=== PATIENT | male | born 1950 | race Caucasian/White ===

== ENCOUNTER 2022-10-10 12:22 | Emergency (ER) | payer OTHER ==
--- NOTE | 2022-10-10 13:14 | RAD REPORT ---
EXAM DESCRIPTION: CT - Head Brain Wo Cont - 10/10/2022 1:07 pm CLINICAL HISTORY: HEADACHE Headache, drowsiness COMPARISON: No comparisons TECHNIQUE: All CT scans are performed using dose optimization technique as appropriate and may inclu de automated exposure control or mA/KV adjustment according to patient size. FINDINGS: No intracranial hemorrhage, hydrocephalus or extra-axial fluid collection.No areas of brai n edema or evidence of midline shift. The paranasal sinuses and mastoids are clear. The calvarium is intact. IMPRESSION: No acute intracranial abnormality.
[2022-10-10] MEDS ORDERED: METHYLPREDNISOLONE 125 MG INJ ONE (14:29)
[2022-10-10] MEDS ORDERED: KETOROLAC 30 MG/ML INJ ONE (14:29)
[2022-10-10] MEDS ORDERED: METOCLOPRAMIDE 10 MG/2mL INJ ONE (14:29)
[2022-10-10 14:43] LABS: Absolute Lymphocytes (CBC) 1.2 K/uL (0.7-4.9); Hematocrit 41.6 % (39.6-49.0); Lymphocytes % 23.5 % (15.3-44.8); MCV 90.2 fL (80-100); MPV 8.5 fL (7.6-11.3); RBC Red Blood Cell Count 4.61 M/uL (4.33-5.43)
[2022-10-10 15:50] VITALS: TEMP 97.5; O2SAT 100
[2022-10-10 15:52] VITALS: BP 140/88
--- NOTE | 2022-10-14 13:17 | EKG ---
Test Date: 2022-10-10 Test Time: 14:29:43 Scrap Metal Collector: OCTAVIA MEASUREMENT RESULTS: Intervals: Rate: 64 DC: 132 QRSD: 74 QT: 364 QTc: 375 [place]: P: 47 DC: 132 QRS: -3 T: 1 INTERPRETIVE STATEMENTS: Normal sinus rhythm with sinus arrhythmia Minimal voltage criteria for LVH, may be normal variant Borderline ECG No previous ECG available for comparison Electronically Signed On 10-14-22 13:09:15 CDT by Gunner King
--- NOTE | 2022-10-25 15:33 | ER ---
Nurse's Notes [facility] Name: Jj Bush Age: 72 yrs Sex: Male : 1950 Arrival Date: 10/10/2022 Time: 12:26 Bed 17 Private MD: Daniel Weinstein Diagnosis: Headache Presentation: 10/10 12:40 Chief complaint: Headache, neck pain, and nausea x 6 days. Coronavirus screen: Client hb presents with at least one sign or symptom that may indicate coronavirus-19. Provider contacted for isolation considerations. Ebola Screen: No symptoms or risks identified at this time. Initial Sepsis Screen: Does the patient meet any 2 criteria? No. Patient's initial sepsis screen is negative. Does the patient have a suspected source of infection? No. Patient's initial sepsis screen is negative. Risk Assessment: Do you want to hurt yourself or someone else? Patient reports no desire to harm self or others. Onset of symptoms was October 05, 2022. 12:40 Method Of Arrival: Ambulatory hb 12:40 Acuity: JACOB 3 hb Historical: - Allergies: 12:41 No Known Allergies; hb - PMHx: 12:41 None; hb - PSHx: 12:41 None; hb - Immunization history:: Adult Immunizations up to date. - Social history:: Smoking status: . Screenin:49 [facility] ED Fall Risk Assessment (Adult) History of falling in the last 3 months, vg1 including since admission No falls in past 3 months (0 pts) Confusion or Disorientation No (0 pts) Intoxicated or Sedated No (0 pts) Impaired Gait No (0 pts) Mobility Assist Device Used No (0 pt) Altered Elimination No (0 pt) Score/Fall Risk Level 0 - 2 = Low Risk Oriented to surroundings, Maintained a safe environment, Educated pt \T\ family on fall prevention, incl call for assistance when getting out of bed, Assessed \T\ reinforced patient's understanding of fall precautions. Abuse screen: Denies threats or abuse. Denies injuries from another. Nutritional screening: No deficits noted. Tuberculosis screening: No symptoms or risk factors identified. Assessment: 14:49 General: Appears in no apparent distress. uncomfortable, Behavior is calm, cooperative. vg1 Pain: Complains of pain in right occipital area and right base of the skull Pain currently is 8 out of 10 on a pain scale. Pain began 10/05/2022 Also complains of nausea. Neuro: Level of Consciousness is awake, alert, obeys commands, Oriented to person, place, time, situation, Gas Truck Driver are equal bilaterally Moves all extremities. Speech is normal, Facial symmetry appears normal, Denies weakness blurred vision dizziness. Cardiovascular: Patient's skin is warm and dry. Respiratory: Airway is patent Respiratory effort is even, unlabored. GI: Abdomen is round non-distended, Reports nausea. : No signs and/or symptoms were reported regarding the genitourinary system. EENT: No signs and/or symptoms were reported regarding the EENT system. Derm: Skin is pink, warm \T\ dry. Musculoskeletal: Circulation, motion, and sensation intact. Vital Signs: 12:40 BP 160 / 98; Pulse 88; Resp 16; Temp 97.5; Pulse Ox 100% on R/A; Weight 89.36 kg; hb Height 5 ft. 8 in. ; Pain 8/10; 15:42 BP 140 / 88; Pulse 59; Resp 16; Pulse Ox 100% on R/A; vg1 12:40 Body Mass Index 29.95 (89.36 kg, 172.72 cm) hb 12:40 Pain Scale: Adult hb NIH Stroke Scale Scores: 12:35 NIHSS Score: 0 [facility] ED Course: 12:26 Patient arrived in ED. mr 12:27 Daniel Weinstein MD is Private Physician. mr 12:36 Velvet Miller, ELKIN is [facility]. jh7 12:41 Triage completed. hb 12:41 Arm band placed on. hb 13:09 CT Head Brain wo Cont In Process Unspecified. EDMS 13:54 Ebenezer Claros MD is Attending Physician. jh7 14:20 Kellee Daugherty, RN is Primary Nurse. vg1 14:35 Inserted saline lock: 20 gauge in right antecubital area, using aseptic technique. vg1 ,using aseptic technique. completed by CUONG. 14:49 Patient has correct armband on for positive identification. Placed in gown. Bed in low vg1 position. Call light in reach. Side rails up X 1. Client placed on continuous cardiac and pulse oximetry monitoring. NIBP monitoring applied. 15:08 Daniel Weinstein MD is Referral Physician. [facility] 15:43 No provider procedures requiring assistance completed. IV discontinued, intact, vg1 bleeding controlled, No redness/swelling at site. Pressure dressing applied. Administered Medications: 14:40 Drug: MethylPrednisoLONE IVP 125 mg Route: IVP; Site: right antecubital; vg1 15:44 Follow up: Response: No adverse reaction vg1 14:42 Drug: metoCLOPramide IVP 10 mg Route: IVP; Site: right antecubital; vg1 15:44 Follow up: Response: No adverse reaction vg1 14:44 Drug: Ketorolac IVP 30 mg Route: IVP; Site: right antecubital; vg1 15:44 Follow up: Response: No adverse reaction vg1 Medication: 14:49 VIS not applicable for this client. vg1 Outcome: 15:08 Discharge ordered by . jh7 15:42 Discharged to home ambulatory. vg1 15:42 Condition: good 15:42 Discharge instructions given to patient, Instructed on discharge instructions, follow up and referral plans. medication usage, Demonstrated understanding of instructions, follow-up care, medications, Prescriptions given X 1. 15:44 Patient left the ED. vg1 NIH Stroke Scale - NIH Stroke Score Date: 10/10/2022 Time: 12:35 Total Score = 0 10. Dysarthria (speech clarity - read or repeat words) - 0(Normal) 11. Extinction and Inattention (visual/tactile/auditory/spatial/personal) - 0(No abnormality) 1a. Level of Consciousness (LOC) - 0(Alert) 1b. Level of Consciousness (LOC) (Month \T\ Age) - 0(Both) 1c. LOC Commands (Open \T\ Closes Eyes/Antenna Installer) - 0(Both) 2. Best Gaze (Lateral Gaze Paresis) - 0(Normal) 3. Visual Field Loss - 0(No visual loss) 4. Facial Palsy - 0(Normal) 5a. Left Arm: Motor (10-second hold) - 0(No drift) 5b. Right Arm: Motor (10-second hold) - 0(No drift) 6a. Left Leg: Motor (5-second hold - always test supine) - 0(No drift) 6b. Right Leg: Motor (5-second hold - always test supine) - 0(No drift) 7. Limb Ataxia (finger/nose \T\ heel/tabor - test with eyes open) - 0(Absent) 8. Sensory Loss (pinprick arms/legs/face) - 0(Normal) 9. Best Language: Aphasia (description/naming/reading) - 0(No aphasia) Initials: 7 Signatures: Dispatcher [employer] Nadeen MominSaige, RN RN Kellee Burden, RN RN vg1 Velvet Miller, WASTE DISPOSAL ATTENDANT WASTE DISPOSAL ATTENDANT 7 Corrections: (The following items were deleted from the chart) 12:45 12:40 BP 160 / 98; Pulse 88bpm; Resp 16bpm; Pulse Ox 100% RA; Temp 97.5F; hb hb
--- NOTE | 2022-10-25 15:33 | EDPHYS ---
Physician Documentation [facility] Name: Jj Bush Age: 72 yrs Sex: Male : 1950 Arrival Date: 10/10/2022 Time: 12:26 Bed 17 Private MD: Daniel Weinstein ED Physician Ebenezer Claros HPI: 10/10 12:35 This 72 yrs old Male presents to ER via Ambulatory with complaints of Head pain,neck jh7 pain, Nausea. 12:35 Onset: The symptoms/episode began/occurred 6 day(s) ago. Associated signs and symptoms: jh7 Pertinent positives: headache, Pertinent negatives: abdominal pain, chest pain, fever, shortness of breath, vomiting. 72-year-old male presents with posterior headache radiating down neck with nausea starting 6 days ago. Denies any past medical history and does not take any medication. Patient of Dr. Rodriguez. Denies weakness, dysphagia, speech changes, visual changes, or any other symptoms. Reports that his headache worsens when he lifts his head up.. Historical: - Allergies: 12:41 No Known Allergies; hb - PMHx: 12:41 None; hb - PSHx: 12:41 None; hb - Immunization history:: Adult Immunizations up to date. - Social history:: Smoking status: . ROS: 12:35 Constitutional: Negative for fever, chills, and weight loss, Eyes: Negative for injury, jh7 pain, redness, and discharge, Neck: Negative for injury, pain, and swelling, Cardiovascular: Negative for chest pain, palpitations, and edema, Respiratory: Negative for shortness of breath, cough, wheezing, and pleuritic chest pain, Back: Negative for injury and pain, MS/Extremity: Negative for injury and deformity, Skin: Negative for injury, rash, and discoloration, Neuro: Negative for headache, weakness, numbness, tingling, and seizure. 12:35 Neck: 12:35 Abdomen/GI: Positive for nausea, Negative for vomiting, diarrhea, constipation. 12:35 Neuro: Positive for headache, Negative for altered mental status, dizziness, numbness, speech changes, syncope, tingling, visual changes, weakness. 12:35 All other systems are negative. Exam: 12:35 Constitutional: This is a well developed, well nourished patient who is awake, alert, jh7 and in no acute distress. Head/Face: Normocephalic, atraumatic. Eyes: Pupils equal round and reactive to light, extra-ocular motions intact. Lids and lashes normal. Conjunctiva and sclera are non-icteric and not injected. Cornea within normal limits. Periorbital areas with no swelling, redness, or edema. ENT: Nares patent. No nasal discharge, no septal abnormalities noted. Tympanic membranes are normal and external auditory canals are clear. Oropharynx with no redness, swelling, or masses, exudates, or evidence of obstruction, uvula midline. Mucous membranes moist. Neck: Trachea midline, no thyromegaly or masses palpated, and no cervical lymphadenopathy. Supple, full range of motion without nuchal rigidity, or vertebral point tenderness. No Meningismus. Cardiovascular: Regular rate and rhythm with a normal S1 and S2. No gallops, murmurs, or rubs. Normal PMI, no JVD. No pulse deficits. Respiratory: Lungs have equal breath sounds bilaterally, clear to auscultation and percussion. No rales, rhonchi or wheezes noted. No increased work of breathing, no retractions or nasal flaring. Abdomen/GI: Soft, non-tender, with normal bowel sounds. No distension or tympany. No guarding or rebound. No evidence of tenderness throughout. Skin: Warm, dry with normal turgor. Normal color with no rashes, no lesions, and no evidence of cellulitis. MS/ Extremity: Pulses equal, no cyanosis. Neurovascular intact. Full, normal range of motion. Neuro: Awake and alert, GCS 15, oriented to person, place, time, and situation. Cranial nerves II-XII grossly intact. Motor strength 5/5 in all extremities. Sensory grossly intact. Cerebellar exam normal. Normal gait. Vital Signs: 12:40 BP 160 / 98; Pulse 88; Resp 16; Temp 97.5; Pulse Ox 100% on R/A; Weight 89.36 kg; hb Height 5 ft. 8 in. ; Pain 8/10; 15:42 BP 140 / 88; Pulse 59; Resp 16; Pulse Ox 100% on R/A; vg1 12:40 Body Mass Index 29.95 (89.36 kg, 172.72 cm) hb 12:40 Pain Scale: Adult hb NIH Stroke Scale Scores: 12:35 NIHSS Score: 0 jh7 MDM: 12:36 Patient medically screened. [facility] 14:57 Differential diagnosis: meningitis, Acute CVA, hypertensive urgency, migraine headache, jh7 tension headache. Data reviewed: vital signs, nurses notes, lab test result(s), EKG, radiologic studies, CT scan. I considered the following discharge prescriptions or medication management in the emergency department Medications were administered in the Emergency Department. See MAR. Independent interpretation of the following test(s) in the Emergency Department EKG: See my EKG interpretation above. Counseling: I had a detailed discussion with the patient and/or guardian regarding: the historical points, exam findings, and any diagnostic results supporting the discharge/admit diagnosis, the need for outpatient follow up, a neurologist, to return to the emergency department if symptoms worsen or persist or if there are any questions or concerns that arise at home. Response to treatment: the patient's symptoms have markedly improved after treatment. Special discussion: Advised to follow-up with neuro if symptoms persist.. ED course: Patient hemodynamically stable throughout the ER visit. Informed him that his CT was negative for any abnormalities. His NIH was 0 and EKG showed normal sinus rhythm.. 10/10 12:46 Order name: Basic Metabolic Panel; Complete Time: 14:55 [facility] 10/10 12:46 Order name: CBC with Diff; Complete Time: 14:55 [facility] 10/10 12:46 Order name: CT Head Brain wo Cont; Complete Time: 13:15 [facility] 10/10 12:46 Order name: EKG; Complete Time: 12:47 [facility] 10/10 12:46 Order name: Cardiac monitoring; Complete Time: 14:30 [facility] 10/10 12:46 Order name: EKG - Nurse/Tech; Complete Time: 14:30 [facility] 10/10 12:46 Order name: IV Saline Lock; Complete Time: 14:30 [facility] 10/10 12:46 Order name: Labs collected and sent; Complete Time: 14:30 [facility] 10/10 12:46 Order name: O2 Per Protocol; Complete Time: 14:30 [facility] 10/10 12:46 Order name: O2 Sat Monitoring; Complete Time: 14:35 [facility] EC:29 Rate is 64 beats/min. Rhythm is regular. QRS [place] is Normal. IA interval is normal at [facility] 132 msec. QRS interval is normal at 74 msec. QT interval is normal at 364 msec. No Q waves. T waves are Normal. No ST changes noted. Clinical impression: Normal ECG. Administered Medications: 14:40 Drug: MethylPrednisoLONE IVP 125 mg Route: IVP; Site: right antecubital; vg1 15:44 Follow up: Response: No adverse reaction vg1 14:42 Drug: metoCLOPramide IVP 10 mg Route: IVP; Site: right antecubital; vg1 15:44 Follow up: Response: No adverse reaction vg1 14:44 Drug: Ketorolac IVP 30 mg Route: IVP; Site: right antecubital; vg1 15:44 Follow up: Response: No adverse reaction vg1 Disposition: 15:53 Co-signature as Attending Physician, Ebenezer Claros MD I reviewed the patient's care rn provided by the Advanced Practice Provider and agree with the diagnosis and treatment plan. Disposition Summary: 10/10/22 15:08 Discharge Ordered Location: Home [facility] Problem: new [facility] Symptoms: have improved [facility] Condition: Stable [facility] Diagnosis - Headache [facility] Followup: [facility] - With: Daniel Weinstein MD - When: 2 - 3 days - Reason: Recheck today's complaints Discharge Instructions: - Discharge Summary Sheet [facility] - General Headache Without Cause [facility] Forms: - Medication Reconciliation Form [facility] - Thank You Letter [facility] Prescriptions: - Medrol (Qasim) 4 mg Oral Tablets, Dose Pack - take 1 tablet by ORAL route as directed - follow package instructions; 1 [facility] packet; Refills: 0, Product Selection Permitted NIH Stroke Scale - NIH Stroke Score Date: 10/10/2022 Time: 12:35 Total Score = 0 10. Dysarthria (speech clarity - read or repeat words) - 0(Normal) 11. Extinction and Inattention (visual/tactile/auditory/spatial/personal) - 0(No abnormality) 1a. Level of Consciousness (LOC) - 0(Alert) 1b. Level of Consciousness (LOC) (Month \T\ Age) - 0(Both) 1c. LOC Commands (Open \T\ Closes Eyes/Shutdown Planner) - 0(Both) 2. Best Gaze (Lateral Gaze Paresis) - 0(Normal) 3. Visual Field Loss - 0(No visual loss) 4. Facial Palsy - 0(Normal) 5a. Left Arm: Motor (10-second hold) - 0(No drift) 5b. Right Arm: Motor (10-second hold) - 0(No drift) 6a. Left Leg: Motor (5-second hold - always test supine) - 0(No drift) 6b. Right Leg: Motor (5-second hold - always test supine) - 0(No drift) 7. Limb Ataxia (finger/nose \T\ heel/tabor - test with eyes open) - 0(Absent) 8. Sensory Loss (pinprick arms/legs/face) - 0(Normal) 9. Best Language: Aphasia (description/naming/reading) - 0(No aphasia) Initials: [facility] Signatures: Dispatcher [employer] EDMS Ebenezer Claros MD MD rn Baxter, Heather, RN RN hb Garcia, Victoria, RN RN vg1 Velvet Miller, SHIRT LINE OPERATOR SHIRT LINE OPERATOR [facility]
== END 2022-10-10 15:44 | disposition home or self-care (01) ==
LOC: ER 12:22
DX: R51.9 Headache, unspecified (principal); R11.0 Nausea
CPT/HCPCS: 93005; 85025; 80048; 36415; 70450; 96375; 96374; 99284; J2765; J2930

== ENCOUNTER 2024-05-07 17:44 | Emergency (ER) | payer OTHER ==
[2024-05-07] MEDS ORDERED: NA CHLORIDE 0.9% 1,000 ML ONE ×3 (18:22→21:25)
[2024-05-07] MEDS ORDERED: FAMOTIDINE 20 MG/2 ML VIAL IV ONE (18:22)
[2024-05-07] MEDS ORDERED: ACETAMINOPHEN 325 MG TABLET ONE (18:22)
[2024-05-07] MEDS ORDERED: ONDANSETRON 4 MG/2 ML VIAL ONE ×2 (18:30→22:06)
[2024-05-07] MEDS ORDERED: MORPHINE 4 MG/ML SYR ONE ×2 (18:31→22:05)
[2024-05-07 18:32] LABS: PT Prothrombin Time 11.7 SECONDS (9.4-12.5); Protime INR 1.05
[2024-05-07 18:42] LABS: Absolute Eosinophils 0.1 K/uL (0-0.5); Absolute Lymphocytes (CBC) 0.9 K/uL (0.7-4.9); Absolute Monocytes 0.9 K/uL (0.1-1.3); Absolute Neutrophil 13.9 K/uL (1.8-8.0); Basophils % 0.2 % (0-1.3); Eosinophils % 0.4 % (0-4.4); Hematocrit 48.6 % (39.6-49.0); Hemoglobin 15.9 g/dL (13.6-17.9); Lymphocytes % 5.9 % (15.3-44.8); MCH 29.2 pg (27.0-35.0); MCHC 32.7 g/dL (32.0-36.0); MCV 89.2 fL (80-100); MPV 8.3 fL (7.6-11.3); Monocytes % 5.8 % (3.3-12.3); Neutrophils % 87.7 % (41.7-73.7); Nucleated Red Blood Cells % 0.1 % (0-0); Platelets 281 thou/uL (152-406); RBC Red Blood Cell Count 5.45 M/uL (4.33-5.43); Red Cell Distribution Width 17.3 % (12.1-15.2)
[2024-05-07 18:50] LABS: Albumin 3.2 g/dL (3.4-5.0); Albumin/Globulin Ratio 0.7 (1.1-1.8); Alkaline Phosphatase 609 U/L (45-117); Anion Gap 8.4 mEq/L (5.0-15.0); BUN Blood Urea Nitrogen 16 mg/dL (7-18); Bicarbonate 29 mEq/L (21-32); Bilirubin Direct 4.4 mg/dL (0-0.2); Globulin 4.8 g/dL (2.3-3.5); Glomerular Filtration Rate 65 ml/min (=/>90); Glucose Level 133 mg/dL (74-106); Magnesium 1.7 mg/dL (1.6-2.4); NT PRO-BNP 90 pg/mL (<450); Potassium 4.4 mEq/L (3.5-5.1); Sodium Level 135 mEq/L (136-145); Troponin High Sensitivity 7.6 pg/mL (<58.9)
[2024-05-07 18:58] LABS: ALT/SGPT 495 U/L (16-61); AST/SGOT 400 U/L (15-37); Bilirubin Indirect, Calculated 1.4 mg/dL (0.2-0.8); Bilirubin Total 5.8 mg/dL (0.2-1.0)
[2024-05-07 19:02] LABS: Lipase > 5000 U/L (13-75)
--- NOTE | 2024-05-07 19:17 | RAD REPORT ---
EXAMINATION: ONE VIEW CHEST XR CLINICAL INDICATION: PAIN TECHNIQUE: Frontal chest projection is submitted. Examination is limited by patient positioning and t echnique. COMPARISON: No prior exam. FINDINGS: Interstitial prominence bilaterally which may represent mild interstitial pulmonary edema or a viral bronchitis. The heart is upper limit of normal in size. No displaced fractures identified.
--- NOTE | 2024-05-07 19:21 | RAD REPORT ---
EXAMINATION: CT ABDOMEN AND PELVIS WITH CONTRAST CLINICAL INDICATION: ABD PAIN TECHNIQUE: CT abdomen and pelvis was performed, after the administration of IV contrast, as per [facility] protocol. Axial, sagittal and coronal reconstructions were obtained. One or more of the following dose reduction techniques were used: Automated exposure control, adjustment of the mA and k V according to patient size, and iterative reconstruction. Unless otherwise specified, incidental findings do not require dedicated imaging follow-up. COMPARISON: 04/30/2024 FINDINGS: LOWER CHEST: Mild atelectasis versus infiltrate in both posterior lung bases, greater on the left. LIVER: Normal in size and contour. No focal lesion. Cholecystectomy clips. Mild postoperative fat str anding in the gallbladder fossa. No fluid collection or abscess. SPLEEN: Normal size. No focal lesion. PANCREAS: Mild edematous appearance to the pancreatic parenchyma could indicate pancreatitis. ADRENALS: Normal; no mass. KIDNEYS: Normal size and contour. No hydronephrosis. GASTROINTESTINAL TRACT: No evidence of free air, significant intra-abdominal free fluid, bowel obstru ction or abscess. Sigmoid diverticulosis coli without diverticulitis. APPENDIX: Normal appendix. LYMPH NODES: No lymphadenopathy. MUSCULOSKELETAL: Lower lumbar spine hardware is in place. ADDITIONAL FINDINGS: None. IMPRESSION: Evidence of recent cholecystectomy abnormal fluid collection or abscess seen. Mild pancreatitis could be present. Mild atelectasis versus infiltrate in both lung bases, greater on the left.
--- NOTE | 2024-05-07 19:30 | EDPHYS ---
Physician Documentation [facility] Name: Jj Bush Age: 74 yrs Sex: Male : 1950 Arrival Date: 05/07/2024 Time: 17:44 Bed 14 Private MD: ED Physician Jason Campos HPI: 05/07 19:15 This 74 yrs old Male presents to ER via Wheelchair with complaints of Post samy Surgical Pain, CHILLS. 19:15 The patient presents with abdominal pain abdominal distention in the upper abdomen, in samy the lower abdomen. Onset: The symptoms/episode began/occurred 1 week(s) ago. The patient presents to the emergency department with nausea, vomiting, abdominal pain, of the epigastric area, right upper quadrant, left upper quadrant and right lower quadrant. Possible causes: pancreatitis. The symptoms are aggravated by nothing. movement, pressure, food . gb out i week ago , now distention pain , fever. Historical: - Allergies: 17:53 NSAIDS; cm10 - PMHx: 17:53 Hypertensive disorder; cm10 18:00 Sleep apnea; rectal bleeding; aa5 - PSHx: 17:53 Cholecystectomy; cm10 - Immunization history:: Adult Immunizations up to date. - Infectious Disease History:: Denies. - Social history:: Smoking status: Patient denies any tobacco usage or history of. ROS: 19:22 Constitutional: Negative for fever, chills, and weight loss, Eyes: Negative for injury, samy pain, redness, and discharge, ENT: Negative for injury, pain, and discharge, Neck: Negative for injury, pain, and swelling, Back: Negative for injury and pain, : Negative for injury, bleeding, discharge, and swelling, MS/Extremity: Negative for injury and deformity, Skin: Negative for injury, rash, and discoloration, Neuro: Negative for headache, weakness, numbness, tingling, and seizure, Psych: Negative for depression, anxiety, suicide ideation, homicidal ideation, and hallucinations, Allergy/Immunology: Negative for hives, rash, and allergies, Endocrine: Negative for neck swelling, polydipsia, polyuria, polyphagia, and marked weight changes, Hematologic/Lymphatic: Negative for swollen nodes, abnormal bleeding, and unusual bruising, 19:22 Constitutional: Positive for body aches, chills, fatigue, fever, malaise, poor PO intake, 19:22 Cardiovascular: Positive for palpitations, 19:22 Respiratory: Positive for cough, shortness of breath, at rest. 19:22 Abdomen/GI: Positive for abdominal pain, nausea and vomiting, abdominal cramps, abdominal distension, of the right upper quadrant, left upper quadrant, right lower quadrant and left lower quadrant, Exam: 19:24 Constitutional: This is a well developed, well nourished patient who is awake, alert, samy and in no acute distress. Head/Face: Normocephalic, atraumatic. Eyes: Pupils equal round and reactive to light, extra-ocular motions intact. Lids and lashes normal. Conjunctiva and sclera are non-icteric and not injected. Cornea within normal limits. Periorbital areas with no swelling, redness, or edema. ENT: Nares patent. No nasal discharge, no septal abnormalities noted. Tympanic membranes are normal and external auditory canals are clear. Oropharynx with no redness, swelling, or masses, exudates, or evidence of obstruction, uvula midline. Mucous membranes moist. Neck: Trachea midline, no thyromegaly or masses palpated, and no cervical lymphadenopathy. Supple, full range of motion without nuchal rigidity, or vertebral point tenderness. No Meningismus. Chest/axilla: Normal chest wall appearance and motion. Nontender with no deformity. No lesions are appreciated. Back: No spinal tenderness. No costovertebral tenderness. Full range of motion. Male : Normal genitalia with no discharge or lesions. Skin: Warm, dry with normal turgor. Normal color with no rashes, no lesions, and no evidence of cellulitis. MS/ Extremity: Pulses equal, no cyanosis. Neurovascular intact. Full, normal range of motion. Neuro: Awake and alert, GCS 15, oriented to person, place, time, and situation. Cranial nerves II-XII grossly intact. Motor strength 5/5 in all extremities. Sensory grossly intact. Cerebellar exam normal. Normal gait. Psych: Awake, alert, with orientation to person, place and time. Behavior, mood, and affect are within normal limits. 19:24 Cardiovascular: Rate: tachycardic, actual rate is 111 bpm, Rhythm: regular, Pulses: Pulses are 4+ in bilateral radial, brachial, femoral, popliteal, posterior tibial and and dorsalis pedis arteries.. Heart sounds: normal, normal S1and S2, no S3 or S4, no murmur, no rub, no gallop, Edema: is not appreciated, JVD: is not appreciated, 19:24 ECG was reviewed by the Attending Physician. 20:55 Abdomen/GI: Inspection: distension, that is moderate, Bowel sounds: high pitched, samy Palpation: moderate abdominal tenderness, in the epigastric area, right upper quadrant and left upper quadrant, Liver: no appreciated palpable abnormalities, Hernia: not appreciated, 20:55 Musculoskeletal/extremity: DVT Exam: No signs of deep vein thrombosis. no pain, no swelling, no tenderness, negative Homans' sign noted on exam, no appreciated bluish discoloration, no erythema, no increased warmth, Vital Signs: 17:51 BP 156 / 85; Pulse 117; Resp 19; Temp 99(O); Pulse Ox 92% on R/A; Weight 91.63 kg; cm10 Height 5 ft. 9 in. ; Pain 10/10; 18:15 BP 174 / 96; Pulse 111; Resp 20 S; Temp 100(O); Pulse Ox 90% on R/A; aa5 18:17 Pulse Ox 95% on 2 lpm NC; aa5 19:00 Temp 102(O); aa5 19:23 BP 157 / 87; Pulse 112; Resp 25; Pulse Ox 98% on NC; kj2 20:28 BP 156 / 89; Pulse 113; Resp 20; Pulse Ox 96% on 4 lpm NC; kj2 17:51 Body Mass Index 29.83 (91.63 kg, 175.26 cm) cm10 17:51 Pain Scale: Adult cm10 MDM: 17:56 Patient medically screened. samy 19:26 Differential Diagnosis altered mental status, sepsis, flu. Differential diagnosis: samy Nonspecific abd pain, gastritis, cholecystitis, pancreatitis, appendicitis, diverticulitis, viral gastroenteritis, gastroenteritis, diverticulitis, gastroesophageal reflux disease, Hepatitis, Mesenteric ischemia or infarction, non-specific abd pain, pancreatitis, Peptic Ulcer Disease, Perf. Duodenal Ulcer, Perf. Gastric Ulcer, Peritonitis, Pyelonephritis, urinary tract infection. Data reviewed: vital signs, nurses notes, lab test result(s), EKG, radiologic studies, CT scan, plain films. Consideration of Admission/Observation Escalation of care including admission/observation considered. I considered the following discharge prescriptions or medication management in the emergency department Medications were administered in the Emergency Department. See MAR. Independent interpretation of the following test(s) in the Emergency Department EKG: See my EKG interpretation above. Test considered but Not performed: MRI: no mrcp. Historians other than the Patient: Spouse/Significant Other: a doctor , well informed. Care significantly affected by the following chronic conditions: Hypertension, Obesity, rectal bleeding. 05/07 17:58 Order name: Basic Metabolic Panel; Complete Time: 19:11 [facility] 05/07 17:58 Order name: CBC with Diff; Complete Time: 19:11 [facility] 05/07 17:58 Order name: LFT's; Complete Time: 19:11 [facility] 05/07 17:58 Order name: Magnesium; Complete Time: 19:11 [facility] 05/07 17:58 Order name: NT PRO-BNP; Complete Time: 19:11 [facility] 05/07 17:58 Order name: PT-INR; Complete Time: 19:11 [facility] 05/07 17:58 Order name: Troponin HS; Complete Time: 19:11 [facility] 05/07 17:58 Order name: Lipase; Complete Time: 19:11 [facility] 05/07 19:12 Order name: Lipid Profile [facility] 05/07 19:21 Order name: Blood Culture Adult (2) [facility] 05/07 19:21 Order name: Lactate w/ 2H reflex if indic. 05/07 19:22 Order name: Urinalysis w/ reflexes 05/07 17:58 Order name: CT Abd/Pelvis - IV Contrast Only; Complete Time: 20:51 [facility] 05/07 18:00 Order name: Chest Single View XRAY; Complete Time: 20:51 [facility] 05/07 17:58 Order name: Cardiac monitoring; Complete Time: 18:18 [facility] 05/07 17:58 Order name: EKG - Nurse/Tech; Complete Time: 18:18 [facility] 05/07 17:58 Order name: IV Saline Lock; Complete Time: 18:18 [facility] 05/07 17:58 Order name: Labs collected and sent; Complete Time: 18:18 [facility] 05/07 17:58 Order name: O2 Per Protocol; Complete Time: 18:18 [facility] 05/07 17:58 Order name: O2 Sat Monitoring; Complete Time: 18:18 [facility] EC:24 Rate is 114 beats/min. Rhythm is regular. QRS [place] is Normal. [place] interval is normal. samy QRS interval is normal. QT interval is normal. No Q waves. T waves are Normal. No ST changes noted. Clinical impression: Sinus tachycardia and No evidence of ischemia. Interpreted by me. Reviewed by me. Administered Medications: 18:29 Drug: NS 0.9% IV 1000 ml IV at 1 bolus Per protocol; 1000 mL bolus Route: IV; Rate: 1 aa5 bolus; Site: right antecubital; 18:29 Drug: Famotidine IVP 20 mg IVP once; dilute with 10 mL 0.9% NaCl; give over 2 minutes aa5 Route: IVP; Site: right antecubital; 18:35 Follow up: Response: No adverse reaction aa5 18:29 Drug: Acetaminophen PO 650 mg PO once Route: PO; aa5 18:47 Follow up: Response: No adverse reaction aa5 21:56 Follow up: Response: No adverse reaction kj2 18:41 Drug: morphine IVP or IV 4 mg IVP once over 4 mins Route: IVP; Infused Over: 4 mins; aa5 Site: right antecubital; 18:47 Follow up: Response: No adverse reaction aa5 21:55 Follow up: Response: No adverse reaction kj2 18:41 Drug: Ondansetron IVP 4 mg IVP once; over 2 minutes Route: IVP; Site: right antecubital;aa5 18:47 Follow up: Response: No adverse reaction aa5 21:55 Follow up: Response: No adverse reaction kj2 20:27 Drug: levofloxacin IVPB 500 mg 100 ml IVPB once over 60 mins Volume: 100 ml; Route: kj2 IVPB; Infused Over: 60 mins; Site: right antecubital; 21:53 Follow up: IV Status: Infusion continued upon transfer kj2 05/08 05:55 Follow up: IV Status: Completed infusion; IV Intake: 500ml kj2 05/07 20:28 Drug: NS 0.9% IV 1000 ml IV at 1 bolus Per protocol; 1000 mL bolus Route: IV; Rate: 1 kj2 bolus; Site: right antecubital; 21:30 Follow up: Response: No adverse reaction kj2 21:54 Follow up: IV Status: Completed infusion; IV Intake: 1000ml kj2 21:35 Drug: Piperacillin-Tazobactam IVPB 3.375 grams IVPB once over 60 mins; (mix in NS 100 kj2 mL) Route: IVPB; Infused Over: 60 mins; Site: right antecubital; 05/08 05:54 Follow up: IV Status: Infusion continued upon transfer kj2 05/07 21:35 Drug: NS 0.9% IV 1000 ml IV at 125 ml/hr continuous Route: IV; Rate: 125 ml/hr; Site: kj2 right antecubital; 21:53 Follow up: IV Status: Infusion continued upon transfer kj2 22:08 Drug: Ondansetron IVP 4 mg IVP once; over 2 minutes Route: IVP; Site: right forearm; ha1 22:14 Follow up: Response: No adverse reaction; Medication Administered at Departure kj2 22:10 Drug: morphine IVP or IV 4 mg IVP once over 4 mins Route: IVP; Infused Over: 4 mins; 1 Site: right forearm; 22:14 Follow up: Response: No adverse reaction; Medication Administered at Departure kj2 Disposition Summary: 05/07/24 19:29 Transfer Ordered Notes: Transfer Location: [facility] Reason: Higher level of care samy Condition: Fair samy Problem: new samy Symptoms: have improved samy Accepting Physician: to [facility](05/07/24 22:15) kj2 Diagnosis - Fever, unspecified samy - Biliary acute pancreatitis samy - Elevated white blood cell count samy - Pneumonia due to other specified bacteria - bilateral lower lobe samy - Abdominal tenderness - sp lap jeffrey 6 days(05/07/24 19:30) samy - Other cholelithiasis with obstruction - obstructed CBD samy Forms: - Medication Reconciliation Form samy - SBAR form samy Signatures: Dispatcher [employer] EDMS Jason Campos MD MD cha Calderon, Audri, RN RN aa5 Genesis Salazar, RN RN ha1 Delia Garza, RN RN cm10 Akua Mishra, RN RN kj2 Corrections: (The following items were deleted from the chart) 17:58 17:58 BASIC METABOLIC PANEL+C.LAB.BRZ ordered. EDMS EDMS 17:58 17:58 CBC+H.LAB.BRZ ordered. EDMS EDMS 17:58 17:58 HEPATIC FUNCTION+C.LAB.BRZ ordered. EDMS EDMS 17:58 17:58 MAGNESIUM+C.LAB.BRZ ordered. EDMS EDMS 17:58 17:58 PROBNP+C.LAB.BRZ ordered. EDMS EDMS 17:58 17:58 PROTIME (+INR)+COAG.LAB.BRZ ordered. EDMS EDMS 17:58 17:58 Troponin High Sensitivity+C.LAB.BRZ ordered. EDMS EDMS 17:58 17:58 LIPASE+C.LAB.BRZ ordered. EDMS EDMS 17:59 17:59 Chest Single View+RAD.RAD.BRZ ordered. EDMS EDMS 17:59 17:59 Abdomen Pelvis W Con+CT.RAD.BRZ ordered. EDMS EDMS 19:22 19:22 BLOOD CULTURE*+BA.LAB.BRZ ordered. EDMS EDMS 19:22 19:22 LACTATE+C.LAB.BRZ ordered. EDMS EDMS 19:30 19:29 to [facility] samy 19:30 19:29 Abdominal tenderness [facility] 20:57 19:30 to [facility] [place] [facility] 22:15 20:57 to [facility] kj2
--- NOTE | 2024-05-07 19:30 | ER ---
Nurse's Notes [facility] Name: Jj Bush Age: 74 yrs Sex: Male : 1950 Arrival Date: 05/07/2024 Time: 17:44 Bed 14 Private MD: Diagnosis: Fever, unspecified;Abdominal tenderness-sp lap jeffrey 6 days;Biliary acute pancreatitis;Elevated white blood cell count;Pneumonia due to other specified bacteria-bilateral lower lobe;Other cholelithiasis with obstruction-obstructed CBD Presentation: 05/07 17:51 Chief complaint: Patient states: Chills onset today. Pt states that he had a cm10 cholecystectomy on 05/02 and today started having chills and abdominal pain. No bleeding to incision sites. Coronavirus screen: Client denies travel out of the [place] in the last 14 days. Ebola Screen: Patient denies travel to an Ebola-affected area in the 21 days before illness onset. No symptoms or risks identified at this time. Initial Sepsis Screen: Does the patient meet any 2 criteria? HR > 90 bpm. Does the patient have a suspected source of infection? No. Patient's initial sepsis screen is negative. Risk Assessment: Do you want to hurt yourself or someone else? Patient reports no desire to harm self or others. Onset of symptoms was May 07, 2024. 17:51 Method Of Arrival: Wheelchair cm10 17:51 Acuity: JACOB 3 cm10 Triage Assessment: 17:54 General: Appears in no apparent distress. uncomfortable, Behavior is calm, cooperative. cm10 Neuro: No deficits noted. Level of Consciousness is awake, alert, obeys commands, Oriented to person, place, time, situation, Appropriate for age. Respiratory: No deficits noted. Airway is patent Respiratory effort is even, unlabored, Respiratory pattern is regular, symmetrical. Historical: - Allergies: 17:53 NSAIDS; cm10 - PMHx: 17:53 Hypertensive disorder; cm10 18:00 Sleep apnea; rectal bleeding; aa5 - PSHx: 17:53 Cholecystectomy; cm10 - Immunization history:: Adult Immunizations up to date. - Infectious Disease History:: Denies. - Social history:: Smoking status: Patient denies any tobacco usage or history of. Screenin:00 [facility] ED Fall Risk Assessment (Adult) History of falling in the last 3 months, aa5 including since admission No falls in past 3 months (0 pts) Confusion or Disorientation No (0 pts) Intoxicated or Sedated No (0 pts) Impaired Gait No (0 pts) Mobility Assist Device Used No (0 pt) Altered Elimination No (0 pt) Score/Fall Risk Level 0 - 2 = Low Risk Oriented to surroundings, Maintained a safe environment, Educated pt \T\ family on fall prevention, incl call for assistance when getting out of bed. Abuse screen: Denies threats or abuse. Nutritional screening: No deficits noted. Tuberculosis screening: No symptoms or risk factors identified. Assessment: 18:00 General: Appears uncomfortable, Behavior is calm, cooperative, Reports chills. Pain: aa5 Complains of pain in right upper quadrant and left upper quadrant Pain currently is 10 out of 10 on a pain scale. Quality of pain is described as sharp, Is continuous. Neuro: Level of Consciousness is awake, alert, obeys commands, Oriented to person, place, time, situation. Cardiovascular: Heart tones S1 S2 present Rhythm is sinus tachycardia. Respiratory: Airway is patent Respiratory effort is even, unlabored, shallow, Respiratory pattern is regular, symmetrical. GI: Abdomen is distended, Last BM was May 07, 2024. Bowel sounds present X 4 quads. Abdomen is tender to palpation X 4 quads. Reports nausea, Patient currently denies vomiting. : No signs and/or symptoms were reported regarding the genitourinary system. EENT: Pt is hard of hearing . Derm: Skin is dry, Skin is normal, Skin temperature is hot 3 small incision sites noted, incisions are closed, no redness, no bleeding, no drainage noted to sites. Musculoskeletal: Range of motion: intact in all extremities. 18:55 Reassessment: Patient is alert, oriented x 3, equal unlabored respirations, skin aa5 warm/dry/pink. Pt reports pain has decreased slightly. . 19:23 Reassessment: Patient appears in no apparent distress at this time. Patient and/or kj2 family updated on plan of care and expected duration. Pain level reassessed. Patient is alert, oriented x 3, equal unlabored respirations, skin warm/dry/pink. 19:23 Reassessment: report received from HEVER Woo. Patient just returned from [place]. kj2 20:28 Reassessment: Patient appears in no apparent distress at this time. Patient and/or raisa family updated on plan of care and expected duration. Pain level reassessed. Patient is alert, oriented x 3, equal unlabored respirations, skin warm/dry/pink. 20:48 Reassessment: report attempt at 2042, no answer. report attempt at 2045, was asked by raisa Gooden to call again after 15 minutes. Vital Signs: 17:51 BP 156 / 85; Pulse 117; Resp 19; Temp 99(O); Pulse Ox 92% on R/A; Weight 91.63 kg; cm10 Height 5 ft. 9 in. ; Pain 10/10; 18:15 BP 174 / 96; Pulse 111; Resp 20 S; Temp 100(O); Pulse Ox 90% on R/A; aa5 18:17 Pulse Ox 95% on 2 lpm NC; aa5 19:00 Temp 102(O); aa5 19:23 BP 157 / 87; Pulse 112; Resp 25; Pulse Ox 98% on NC; kj2 20:28 BP 156 / 89; Pulse 113; Resp 20; Pulse Ox 96% on 4 lpm NC; kj2 17:51 Body Mass Index 29.83 (91.63 kg, 175.26 cm) cm10 17:51 Pain Scale: Adult cm10 ED Course: 17:47 Patient arrived in ED. jj6 17:53 Triage completed. cm10 17:54 Arm band placed on Patient placed in an exam room, on a stretcher. cm10 17:56 Jason Campos MD is Attending Physician. samy 18:00 Patient has correct armband on for positive identification. Placed in gown. Bed in low aa5 position. Call light in reach. Side rails up X2. Client placed on continuous cardiac and pulse oximetry monitoring. NIBP monitoring applied. monitoring coordinator on. Pulse ox on. NIBP on. 18:08 Joselin Blank RN is Primary Nurse. aa5 18:15 Initial lab(s) drawn, by me, sent to lab. Inserted saline lock: 20 gauge in right aa5 antecubital area, using aseptic technique. Blood collected. Flushed with 10 mL NS. 18:47 No provider procedures requiring assistance completed. aa5 19:00 Report given to HEVER Fatima. aa5 19:12 CT Abd/Pelvis - IV Contrast Only In Process Unspecified. EDMS 19:12 Chest Single View XRAY In Process Unspecified. EDMS 19:17 Initiated transfer with [facility] spoke with Ayah. vk 19:58 Transfer center called to speak with Andres for Doc to Doc. vk 20:21 patient was accepted to [facility] Monique to Dr. Bhatia RM [id number]. vk 20:28 Urinalysis w/ reflexes Sent. kj2 20:28 Lactate w/ 2H reflex if indic. Sent. kj2 20:28 Blood Culture Adult (2) Sent. kj2 20:30 Provided Education on: call light. kj2 21:35 initiated transport with EMS spoke with Minerva ALVARES 20 mins. vk 21:50 patient picked up by ems. vk 05/08 05:52 Patient transferred, IV remains in place. kj2 Administered Medications: 05/07 18:29 Drug: NS 0.9% IV 1000 ml IV at 1 bolus Per protocol; 1000 mL bolus Route: IV; Rate: 1 aa5 bolus; Site: right antecubital; 18:29 Drug: Famotidine IVP 20 mg IVP once; dilute with 10 mL 0.9% NaCl; give over 2 minutes aa5 Route: IVP; Site: right antecubital; 18:35 Follow up: Response: No adverse reaction aa5 18:29 Drug: Acetaminophen PO 650 mg PO once Route: PO; aa5 18:47 Follow up: Response: No adverse reaction aa5 21:56 Follow up: Response: No adverse reaction kj2 18:41 Drug: morphine IVP or IV 4 mg IVP once over 4 mins Route: IVP; Infused Over: 4 mins; aa5 Site: right antecubital; 18:47 Follow up: Response: No adverse reaction aa5 21:55 Follow up: Response: No adverse reaction kj2 18:41 Drug: Ondansetron IVP 4 mg IVP once; over 2 minutes Route: IVP; Site: right antecubital;aa5 18:47 Follow up: Response: No adverse reaction aa5 21:55 Follow up: Response: No adverse reaction kj2 20:27 Drug: levofloxacin IVPB 500 mg 100 ml IVPB once over 60 mins Volume: 100 ml; Route: kj2 IVPB; Infused Over: 60 mins; Site: right antecubital; 21:53 Follow up: IV Status: Infusion continued upon transfer kj2 05/08 05:55 Follow up: IV Status: Completed infusion; IV Intake: 500ml kj2 05/07 20:28 Drug: NS 0.9% IV 1000 ml IV at 1 bolus Per protocol; 1000 mL bolus Route: IV; Rate: 1 kj2 bolus; Site: right antecubital; 21:30 Follow up: Response: No adverse reaction kj2 21:54 Follow up: IV Status: Completed infusion; IV Intake: 1000ml kj2 21:35 Drug: Piperacillin-Tazobactam IVPB 3.375 grams IVPB once over 60 mins; (mix in NS 100 kj2 mL) Route: IVPB; Infused Over: 60 mins; Site: right antecubital; 05/08 05:54 Follow up: IV Status: Infusion continued upon transfer kj2 05/07 21:35 Drug: NS 0.9% IV 1000 ml IV at 125 ml/hr continuous Route: IV; Rate: 125 ml/hr; Site: [facility] right antecubital; 21:53 Follow up: IV Status: Infusion continued upon transfer kj2 22:08 Drug: Ondansetron IVP 4 mg IVP once; over 2 minutes Route: IVP; Site: right forearm; [facility] 22:14 Follow up: Response: No adverse reaction; Medication Administered at Departure kj2 22:10 Drug: morphine IVP or IV 4 mg IVP once over 4 mins Route: IVP; Infused Over: 4 mins; [facility] Site: right forearm; 22:14 Follow up: Response: No adverse reaction; Medication Administered at Departure kj2 Medication: 18:46 VIS not applicable for this client. aa5 Intake: 21:54 IV: 1000ml; Total: 1000ml. kj2 05/08 05:55 IV: 500ml; Total: 1500ml. kj2 Outcome: 05/07 19:29 ER care complete, transfer ordered by MD. pablo 22:05 Transferred by ground EMS to [facility], kj2 22:05 Condition: stable 22:05 Instructed on the need for transfer, 22:15 Patient left the ED. kj2 Signatures: Dispatcher [employer] EDMS Jason Campos MD MD cha Calderon, Audri RN RN aa5 Velvet Wall jj6 Genesis Salazar RN RN ha1 Delia Garza RN RN cm10 Juany Pedersen Krystal, RN RN kj2 Corrections: (The following items were deleted from the chart) 19:10 18:00 GI: Abdomen is distended, Bowel sounds present X 4 quads. Abdomen is tender to aa5 palpation X 4 quads. Reports nausea, Patient currently denies vomiting, aa5 20:18 19:17 Trauma Team Initiated transfer with [facility] Monique spoke with Ayah hanson
[2024-05-07] MEDS ORDERED: Levofloxacin500mg IV 500 MG/100 ML BAG IV ONE (20:07)
[2024-05-07 20:58] LABS: Specific Gravity 1.028 (1.005-1.030); Sqamous Epithelial None Seen /HPF (None Seen); Urine Bacteria None Seen /HPF (<20); Urine Bilirubin 1+ (Negative); Urine Blood Negative (Negative); Urine Clarity Clear (Clear); Urine Color Dark-Yellow (Yellow); Urine Culture Reflex Order NOT NEEDED; Urine Glucose NEGATIVE (Negative); Urine Ketones NEGATIVE (Negative); Urine Microscopic Reflex YN ORDER UMIC; Urine Mucus Slight /HPF (None Seen); Urine Nitrite NEGATIVE (Negative); Urine Protein TRACE (Negative); Urine RBC <5 /HPF (None Seen); Urine Urobilinogen 1+ (Normal); Urine WBC <5 /HPF (<5); Urine pH 5.5 (5.0-7.0)
[2024-05-07] MEDS ORDERED: NA CHLORIDE 0.9% 100 ML ONE (21:25)
[2024-05-07] MEDS ORDERED: PIPERACIL/TAZO 3.375 GM VIAL IV ONE (21:25)
[2024-05-07 22:34] VITALS: TEMP 102
[2024-05-07 22:37] VITALS: BP 156/89; O2SAT 96
--- NOTE | 2024-05-10 12:00 | EKG ---
Test Date: 2024-05-07 Test Time: 18:16:12 Avionics Manager: RHYS MEASUREMENT RESULTS: Intervals: Rate: 114 WA: 128 QRSD: 78 QT: 304 QTc: 419 [place]: P: 55 WA: 128 QRS: -4 T: 46 INTERPRETIVE STATEMENTS: Sinus tachycardia Otherwise normal ECG Compared to ECG 10/10/2022 14:29:43 Sinus rhythm no longer present Sinus arrhythmia no longer present Left ventricular hypertrophy no longer present Electronically Signed On 05-10-24 11:54:34 CDT by Cooper Sterling
== END 2024-05-07 22:15 | disposition short-term general hospital (02) ==
LOC: ER 17:44
DX: K85.10 Biliary acute pancreatitis without necrosis or infection (principal); J15.8 Pneumonia due to other specified bacteria; K80.81 Other cholelithiasis with obstruction; Z90.49 Acquired absence of other specified parts of digestive tract; D72.829 Elevated white blood cell count, unspecified; R10.816 Epigastric abdominal tenderness; I10 Essential (primary) hypertension
CPT/HCPCS: 93005; 87040 ×2; 85025; 81001; 80048; 36415; 83735; 85610; 80061; 80076; 83605; 84484; 83690; 83880; 74177; 71045; 99285; Q9967; J2543; J2405 ×2; J7030 ×3